=== PATIENT | female | born 1975 | race Caucasian/White ===

== ENCOUNTER 2020-04-11 07:44 | Day surgery (SDC) | payer OTHER ==
[2020-04-04 11:03] LABS: BASOPHIL % 0.5 % (0-2); PLATELET COUNT 348 x10^3mcL (130-400)
[2020-04-04 11:04] LABS: RED CELL DISTRIBUTION WIDTH 15.5 % (11.5-14.5)
[2020-04-04 11:21] LABS: ALBUMIN 3.9 g/dL (3.4-5.0); ALKALINE PHOSPHATASE 78 U/L (46-116); ALT/SGPT 61 U/L (14-59); AST/SGOT 22 U/L (15-37); BILIRUBIN TOTAL 0.22 mg/dL (0.20-1.00); CALCIUM 8.9 mg/dL (8.5-10.1); CARBON DIOXIDE 28.4 mmol/L (21-32); CHLORIDE SERUM 103 mmol/L (98-107); CREATININE SERUM 0.7 mg/dL (0.6-1.0); GFR1 > 60 mL/min; GLUCOSE SERUM 102 mg/dL (74-106); POTASSIUM SERUM 3.9 mmol/L (3.5-5.1); SODIUM SERUM 138 mmol/L (136-145)
[2020-04-04 11:22] LABS: TOTAL PROTEIN, SERUM 8.6 g/dL (6.4-8.2)
[~2020-04-11] VITALS: Ht 154.9 cm; Wt 68.9 kg
[2020-04-11 08:16] VITALS: BP 148/78
[2020-04-11 13:53] VITALS: BP 131/79
== END 2020-04-11 13:45 | disposition home or self-care (01) ==
LOC: DS 07:44 → OR 10:00 → DS 13:45
PROVIDERS: ATTEND Surgery
DX: D17.1 Benign lipomatous neoplasm of skin and subcutaneous tissue of trunk (principal); Z98.891 History of uterine scar from previous surgery; Z98.890 Other specified postprocedural states; Z20.828 Contact with and (suspected) exposure to other viral communicable diseases
CPT/HCPCS: J0131; J0690; J2175; J2250; J2405; J2704; J3010; J3490; J7030; U0003